=== PATIENT | male | born 1950 | race Caucasian/White ===

== ENCOUNTER → 2016-12-24 | Outpatient (CLI) | payer OTHER ==
--- NOTE | 2016-12-25 07:20 | ECHOF ---
DATE OF PROCEDURE December 24, 2016 This is a two-dimensional echo with spectral Doppler, color-flow and M-mode. It was obtained in a patient with congenital heart disease. Left atrium is dilated. Left ventricle end-diastolic dimension is normal. Left ventricle wall thickness is increased. LV systolic function is normal with ejection fraction of 62%. Right atrium is normal. Right ventricle is normal. Aortic root dimension is normal. Mitral valve is morphologically normal with mild mitral regurgitation. Aortic valve is a trileaflet structure with no stenosis or insufficiency. Tricuspid valve shows mild tricuspid regurgitation with normal estimated pulmonary artery systolic pressure of 32. Pulmonary valve shows no pulmonary insufficiency. There is no pericardial effusion. There is no evidence of ASD or VSD. IMPRESSION 1. No evidence of the ASD or VSD 2. Normal LV systolic function with ejection fraction of 62%. 3. Trace of mitral regurgitation. 4. Mild tricuspid regurgitation with normal estimated pulmonary artery systolic pressure of 32. 5. Left atrial dilation. 3. Mild left ventricular hypertrophy. MTDD
== END ==
LOC: IMA 11:22
PROVIDERS: ATTEND Orthopaedic Surgery
DX: Q21.0 Ventricular septal defect (principal); I07.1 Rheumatic tricuspid insufficiency
CPT/HCPCS: 93306